=== PATIENT | male | born 1995 | race Caucasian/White ===

== ENCOUNTER 2021-09-25 19:14 | Emergency (ER) | payer OTHER ==
[2021-09-25 20:08] LABS: BASOPHILS # (AUTO) 0.1 10^3/uL (0.0-0.1); BASOPHILS % (AUTO) 0.7 %; EOSINOPHILS # (AUTO) 0.2 10^3/uL (0.0-0.7); EOSINOPHILS % (AUTO) 2.3 %; HCT - HEMATOCRIT 45.3 % (42.0-52.0); HGB - HEMOGLOBIN 15.4 g/dL (14.0-18.0); LYMPHOCYTES # (AUTO) 3.4 10^3/uL (1.5-3.5); LYMPHOCYTES % (AUTO) 35.5 %; MEAN CORPUSCULAR HEMOGLOBIN 27.4 pg (27.0-31.0); MEAN CORPUSCULAR VOLUME 80.5 fL (80.0-94.0); MEAN PLATELET VOLUME 9.3 fL (7.4-11.4); MONOCYTES # (AUTO) 0.7 10^3/uL (0.0-1.0); MONOCYTES % (AUTO) 7.1 %; NEUTROPHILS # (AUTO) 5.1 10^3/uL (1.5-6.6); NEUTROPHILS % (AUTO) 54.1 %; PLT - PLATELET COUNT 268 10^3/uL (130-450); RED BLOOD COUNT 5.63 10^6/uL (4.70-6.10); RED CELL DISTRIBUTION WIDTH 12.9 % (12.0-15.0); WHITE BLOOD COUNT 9.4 x10^3/uL (4.8-10.8)
[2021-09-25 20:14] LABS: ALBUMIN 4.4 g/dL (3.2-5.5); ALBUMIN/GLOBULIN RATIO 1.6 (1.0-2.2); BILIRUBIN,TOTAL 0.6 mg/dL (0.2-1.0); POTASSIUM 4.2 mmol/L (3.5-5.0); TOTAL PROTEIN 7.1 g/dL (6.7-8.2)
[2021-09-25 20:39] LABS: BILIRUBIN,URINE NEGATIVE (NEGATIVE); GLUCOSE, URINE (UA) NEGATIVE (NEGATIVE); KETONES,URINE (UA) NEGATIVE (NEGATIVE); LEUKOCYTE ESTERASE, URINE NEGATIVE (NEGATIVE); NITRITE,URINE NEGATIVE (NEGATIVE); OCCULT BLOOD,URINE NEGATIVE (NEGATIVE); PROTEIN,URINE NEGATIVE (NEGATIVE); UROBILINOGEN,URINE 0.2 (NORMAL) E.U./dL (NORMAL)
[2021-09-25 20:42] LABS: CLARITY,URINE CLEAR (CLEAR)
--- NOTE | 2021-09-25 20:50 | ED Physician Documentation ---
History of Present Illness - Stated complaint Stated Complaint: DIZZINESS - Chief complaint Chief Complaint: Neuro - History obtained from History obtained from: Patient - Additonal information Additional information: 25-year-old gentleman with history of depression and PTSD. He has been on prazosin and Effexor and tapered off over a week finishing up on Saturday, 3 days ago. Subsequent to that he developed orthostasis, feeling lightheaded every time he was standing up or walking. He is minimally symptomatic when supine. There is no associated vertigo. No headache. No trouble breathing. No heart problems. At the time of my evaluation he is already had orthostatic vital signs done which were normal. The taper of the Effexor, he was on 225 mg, went down to 75 mg which he was on for a week and then stopped. Review of Systems Constitutional: denies: Fever, Chills Eyes: reports: Reviewed and negative Ears: reports: Reviewed and negative Nose: reports: Reviewed and negative Throat: reports: Reviewed and negative Cardiac: reports: Reviewed and negative Respiratory: reports: Reviewed and negative PD PAST MEDICAL HISTORY - Past Medical History Past Medical History: Yes Psych: Depression, Anxiety - Past Surgical History Past Surgical History: Yes General: Appendectomy - Present Medications Home Medications: Ambulatory Orders Medication Instructions Recorded Confirmed hydrOXYzine HCL [Hydroxyzine HCl] 10 mg PO DAILY 09/25/21 09/25/21 - Allergies Allergies/Adverse Reactions: Allergies Allergy/AdvReac Type Severity Reaction Status Date / Time No Known Drug Allergies Allergy Verified 09/25/21 19:19 - Social History Does the pt smoke?: No Smoking Status: Never smoker Does the pt drink ETOH?: No Does the pt have substance abuse?: No - Immunizations Immunizations are current?: Yes PD ED PE NORMAL - Vitals Vital signs reviewed: Yes - General General: Alert and oriented X 3, No acute distress - HEENT HEENT: PERRL, EOMI - Neck Neck: Supple, no meningeal sign, No bony TTP - Cardiac Cardiac: RRR, No murmur - Respiratory Respiratory: No respiratory distress, Clear bilaterally - Abdomen Abdomen: Normal bowel sounds, Soft, Non tender - Back Back: No CVA TTP, No spinal TTP - Derm Derm: Normal color, Warm and dry - Extremities Extremities: No edema, No calf tenderness / cord - Neuro Neuro: Alert and oriented X 3, barrel assembler 2-12 intact, No motor deficit, No sensory deficit, Normal speech Eye Opening: Spontaneous Motor: Obeys Commands Verbal: Oriented GCS Score: 15 - Psych Psych: Normal mood, Normal affect Results - Vitals Vitals: Vital Signs - 24 hr 09/25/21 09/25/21 09/25/21 19:19 19:46 20:11 Temperature 36.6 C 36.6 C Heart Rate 88 88 Heart Rate [ 75 Sitting] Heart Rate [ 79 Standing] Heart Rate [ 72 Supine] Respiratory 16 16 Rate Blood Pressure 150/98 H 150/98 H Blood Pressure 134/86 H [Sitting] Blood Pressure 126/65 [Standing] Blood Pressure 126/88 H [Supine] O2 Saturation 98 98 Oxygen O2 Source Room air - EKG (time done) 2000 Rate: Rate (enter#) (80) Rhythm: NSR [place]: Normal Intervals: Normal [place] QRS: Normal Ischemia: Normal ST segments - Labs Labs: Laboratory Tests 09/25/21 09/25/21 09/25/21 19:55 19:55 20:33 WBC 9.4 RBC 5.63 Hgb 15.4 Hct 45.3 MCV 80.5 MCH 27.4 MCHC 34.0 RDW 12.9 Plt Count 268 MPV 9.3 Neut # (Auto) 5.1 Lymph # (Auto) 3.4 [place] # (Auto) 0.7 Eos # (Auto) 0.2 Baso # (Auto) 0.1 Absolute Nucleated RBC 0.00 Nucleated RBC % 0.0 Sodium 141 Potassium 4.2 Chloride 102 Carbon Dioxide 30 Anion Gap 9.0 BUN 10 Creatinine 1.0 Estimated GFR (MDRD) 90 Glucose 102 H Calcium 10.0 Total Bilirubin 0.6 AST 18 ALT 25 Alkaline Phosphatase 61 Total Protein 7.1 Albumin 4.4 Globulin 2.7 Albumin/Globulin Ratio 1.6 Urine Color YELLOW Urine Clarity CLEAR Urine pH 7.0 Ur Specific [place] 1.020 Urine Protein NEGATIVE Urine Glucose (UA) NEGATIVE Urine Ketones NEGATIVE Urine Occult Blood NEGATIVE Urine Nitrite NEGATIVE Urine Bilirubin NEGATIVE Urine Urobilinogen 0.2 (NORMAL) Ur Leukocyte Esterase NEGATIVE Ur Microscopic Review NOT INDICATED Urine Culture Comments NOT INDICATED PD MEDICAL DECISION MAKING - ED course ED course: He presents with orthostasis albeit he does not technically orthostatic but his symptoms are consistent with orthostasis. There is nothing in the history or physical to suggest dehydration. His EKG is unremarkable. The only thing that changed is that just before the symptoms started he was rapidly tapered off of Effexor and prazosin. I suspect the rapid taper off of Effexor is causative and we formulated a plan to address that. Departure - Departure Disposition: 01 Home, Self Care Clinical Impression: Dizziness Condition: Good Record reviewed to determine appropriate education?: Yes Instructions: ED Dizziness UKO Comments: As discussed, I suspect the cause of your orthostasis is likely the rapid taper off of the Effexor. I recommend going back on the Effexor at a dose of 75 mg for about 2 weeks, then 37-1/2 mg for about 2 weeks, then you can stop and I suspect you will have much less symptomatology. Return if worsening. [place]
[2021-09-25 20:56] VITALS: BP 130/81
== END 2021-09-25 20:59 | disposition home or self-care (01) ==
LOC: ED 19:14
DX: R42 Dizziness and giddiness (principal)
CPT/HCPCS: 36415; 80053; 81001; 81003; 85025; 87086; 93005; 99283; 99284

== ENCOUNTER 2021-10-19 09:23 | Outpatient (CLI) | payer OTHER ==
[2021-10-19 10:24] VITALS: BP 122/85
--- NOTE | 2021-10-19 10:24 | SLEEP CARE CONSULTATION ---
Information from patient questionnaire entered by Robert Vickers MA. I have reviewed and concur with the information entered by Robert Vickers MA. This document represents the service I personally performed and the decisions made by me, Radhika Novoa ARNP. History of Present Illness Service Date and Time: 10/19/2021 0923 Reason for Visit: New patient Chief Complaint: reports: Unrefreshed sleep, Snoring, Excessive daytime sleepiness, Observed pauses in breathing, Fatigue, Frequent awakenings at night Date of Onset: 6 years Usual bedtime: 10 PM Time it takes to fall asleep: 1 hour Snores at night: Yes Observed to quit breathing while asleep: Yes Sleeps alone due to snoring: No Number of times waking at night: 3 Reasons for waking at night: reports: Snoring, Gasping for air (according to when sleeping), Other (Unknown reason) Toss, Turn, or Twitch while sleeping: Yes Recalls having dreams: No Usually gets out of bed at: 5:45 AM; weekends 0700 Feels refreshed in the morning: No Morning headache: Yes (7 AM; 50% of days, last about 2 hours) Sleepy or fatigued during the day: Yes Ever fallen asleep while driving: No (some drowsy driving, no accidents) Takes day naps: No Dreams during day naps: No Prior sleep studies: No Additional HPI information: I had the pleasure of seeing DEMETRICE BLOCK today regarding the possibility of him having a sleep disorder. His current complaints are unrefreshed sleep, snoring, observed pauses in breathing, frequent night awakenings, fatigue and excessive daytime sleepiness. He is here because his states he snores loudly and will stop breathing. He does not feel he is rested in the morning. He experiences sleep paralysis about 1 time a month and it will take about 30 minutes to go back to sleep. He has been told that he talks a lot in his sleep. His has told him that he lets the dogs out at night and he does not remember doing this. His has also told him that he gasps in his sleep. He has a history of depression, anxiety and PTSD. 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 Patient is and lives in [place]. Have you smoked in the past 12 months: No Cigarettes per day (20/pack): 20 Years of smokin Quit date: September 2020 Smoking Pack Years: 10.0 Alcohol use: No Caffeine use: Yes Caffeine amount and frequency: 2 cups per day Family History Family history of sleep disordered breathing: No Family Hx Sleep Apnea: Sibling: Snoring Allergies and Home Medications Drug allergies reviewed: Yes (NKDA) Home medication list reviewed: Yes Allergy and home medication list: Effexor XR, weaning off by Saturday Hydroxyzine Review of Systems Weight gain over past 5 years: 25 Cardiovascular: reports: high blood pressure (varies, no medications at this time) Gastrointestinal: denies: heartburn Urinary: reports: other (Takes a while befoer I can urinate) Neurological: reports: headaches Psychiatric: reports: anxiety, depression, mood disorder, other (PTSD) Ear/Nose/Throat: reports: wisdom teeth removed. denies: injury to nose, tonsillectomy Endocrine: denies: thyroid disease Musculoskeletal: reports: neck pain, back pain, other (Tendinitis) Immunologic: denies: allergies to food or environment Physical Exam Vital signs obtained and entered by: Paige VICKERS CMA AARAISSA Blood Pressure: 122/85 (left) Cuff size: wrist Heart Rate: 92 (PT states normal high due to PTSD) O2 Saturation: 97 (with mask) Height: 5 ft 10 in Weight: 195 lb (with uniform and boots) Body Mass Index: 27.9 BMI Classification: Overweight Neck circumference: 16 (inches) Nostrils: patent to airflow Mouth and throat: narrow oropharynx Soft palate: long Hard palate: arched Uvula: normal Uvula visualization: 25% Mallampati Class III Tongue: normal in size Tonsils: small Neck: normal w/o lymphadenopathy or thyromegaly Heart: regular rate and rhythm Lungs: clear bilaterally Impression and Plan 1. Suspected Obstructive Sleep Apnea-Hypopnea Syndrome, as suggested by a history of loud and irregular snoring, observed cessation of breath while asleep, gasping or choking in sleep, morning headache, frequent awakening during the night, unrefreshed sleep, cognitive impairment, and excessive daytime sleepiness. Narrow oropharynx and obesity are common predisposing factors for obstructive sleep apnea-hypopnea syndrome. I recommend proceeding to polysomnography to confirm the diagnosis and to assess severity. If the patient has significant sleep disordered breathing, a manual CPAP titration study will also be performed to find the optimal treatment pressure. I informed the patient of what the sleep studies involve and after some discussion, obtained agreement to proceed. The pathophysiology of obstructive sleep apnea-hypopnea syndrome was discussed with the patient and health risks of cardiovascular and cerebrovascular disease if not treated. AAS brochure for obstructive sleep apnea-hypopnea syndrome given and reviewed. Risks of drowsy driving discussed in detail and patient advised to avoid long distance driving and to ice puller at the first sign of drowsiness. Patient agreed to plan. * Schedule polysomnography +- manual CPAP titration study and return in 1-2 weeks after the study to discuss result and initiate therapy. * Avoid long distance driving or driving when feeling sleepy. * Avoid alcohol, sedative and muscle relaxant around bedtime. * Attempt to lose weight. * Review instructions provided by trained office staff on how to prepare for the sleep study. * Return for follow-up after sleep study completed. Counseling Topics: Weight loss health impact Visit Type: In Office Time Spent with Patient (minutes): 30 Provider Statement: I spent 100% of the Face to Face Visit with the patient with greater than 50% spent counseling the patient and coordination of care.
== END 2021-10-19 09:24 | disposition home or self-care (01) ==
LOC: SC 09:23
PROVIDERS: ATTEND Nurse Practitioner Family
DX: R06.83 Snoring (principal); R51.9 Headache, unspecified; G47.8 Other sleep disorders; G47.10 Hypersomnia, unspecified
CPT/HCPCS: 99203; 99212

== ENCOUNTER 2021-10-20 08:28 | Outpatient (CLI) | payer OTHER | END 2021-10-20 08:29 | disposition home or self-care (01) | LOC: SC 08:28 | PROVIDERS: ATTEND Nurse Practitioner Family | DX: G47.33 Obstructive sleep apnea (adult) (pediatric) (principal); R09.02 Hypoxemia | CPT/HCPCS: 95806 ==

== ENCOUNTER 2021-11-01 13:55 | Outpatient (CLI) | payer OTHER ==
--- NOTE | 2021-11-01 14:09 | SLEEP CARE CONSULTATION ---
Information from patient questionnaire entered by Robert Vickers MA. I have reviewed and concur with the information entered by Robert Vickers MA. This document represents the service I personally performed and the decisions made by , Radhika Novoa ARNP. History of Present Illness Service Date and Time: 11/01/2021 1400 Initial [place] Sleepiness Scale score: 13 (in 2020) Current [place] Sleepiness Scale score: 15 Additional HPI information: DEMETRICE BLOCK returns via video Telehealth visit for follow up and results of the recently performed home sleep study. I explained the pathophysiology behind obstructive sleep apnea. We then spent quite a bit of time discussing different treatment options. For mild obstructive sleep apnea, surgery and oral appliance are alternatives to nasal CPAP therapy but in moderate or severe cases, nasal CPAP is the most effective and reliable treatment. I reviewed the impact of weight changes on sleep apnea and strongly recommended losing weight. After some discussion, the patient opted to go with the nasal CPAP therapy. Nasal autoCPAP set at 5-20 cmH20 will be ordered with rationale explained. A manual titration study will be ordered if unable to find optimal pressure with office adjustments. I explained how CPAP machine works and what to expect when using the machine. Using CPAP every night in order to get used to it was emphasized. Patient advised to put CPAP mask on before getting into bed so as not to fall asleep without CPAP. To assist acclimation to CPAP use, it could also be used for a short time during day while reading or watching TV. The patient was instructed to call the CPAP supplier to discuss any mechanical problem that may occur. If the mask given is uncomfortable or is difficult to keep on through the night even with adjustment, contact the CPAP supplier as many will replace with another mask style if notified before 30 days. If snoring or perceives is not getting enough air or too much air from the machine, notify this office. Patient does not drink alcohol. Patient was cautioned about risks of drowsy driving until sleepiness symptoms resolve. Sleep Study - Results Type of Sleep Study: Home sleep study Prior sleep studies: No Polysomnography/Home Sleep Study results: Physician Impression: The quality of the study is good. The length of the study is not optimal (< 240 minutes). Please also see the tabulated and graphic data. 1. Obstructive Sleep Apnea-Hypopnea (ICD-10 G47.33), severe, with an AHI of 52.8/hr and mary SaO2 of 81%. During the study, the patient had 119 apneas (119 obstructive, 0 central, 0 mixed) and 58 hypopneas. The longest episode lasted 134.0 seconds. The respiratory events occurred independently of sleep stage and body position (supine AHI was 44.4 and non-supine, 52.95). 2. Hypoxemia (ICD-10 R09.02), mild, with the lowest oxygen saturation of 81 % and 42.4 minutes with SaO2 under 90%. Baseline oxygen saturation was normal (Average oxygen saturation was 91%). Allergies and Home Medications Home medication list reviewed: Yes (Paxil started, Effexor stopped) Review of Systems Review of systems same as previous: Yes (no changes) Physical Exam Vital signs obtained and entered by: Telehealth visit to reduce exposure during Covid pandemic Height: 5 ft 10 in Impression and Plan 1. Obstructive Sleep Apnea-Hypopnea Syndrome, severe, with lowest oxygen saturation of 81%. Obviously this is the cause of the patients symptoms of unrefreshed sleep, and excessive daytime sleepiness. Positive pressure therapy could benefit anxiety, depression and PTSD. As mentioned above, the patient will be started on nasal autoCPAP therapy with pressure set at 5-20 cmH2O. A m anual titration study will be completed if unable to find optimal treatment pressure with office adjustments. Compliance guidelines also reviewed. A copy of compliance guidelines will be given for reference at check out. 2. Hypoxemia, mild, with the lowest oxygen saturation of 81 % and 42.4 minutes with SaO2 under 90%. His baseline oxygen saturation was normal with an average oxygen saturation of 91%. * Nasal auto CPAP therapy, pressure at 5-20 cm H2O. * Attempt to lose weight. * Avoid alcohol consumption near bedtime. * Avoid supine sleep until using CPAP. * The patient is again cautioned about driving until sleepiness completely resolves. * Return one month after CPAP obtained. I will assess response to therapy and compliance at that time. Counseling Topics: Weight loss health impact Visit Type: Telehealth Video Video Type: VSee Patient Location: Home Location of Provider: Office Patient agrees and consents to this telehealth visit type: Yes Patient agrees to have their insurance billed: Yes Time Spent with Patient (minutes): 20 Provider Statement: I spent 100% of the Telehealth Video Call with the patient with greater than 50% spent counseling the patient and coordination of care.
== END 2021-11-01 13:56 | disposition home or self-care (01) ==
LOC: SC 13:55
PROVIDERS: ATTEND Nurse Practitioner Family
DX: G47.33 Obstructive sleep apnea (adult) (pediatric) (principal); R09.02 Hypoxemia

== ENCOUNTER 2021-11-20 13:42 | Outpatient (CLI) | payer OTHER ==
--- NOTE | 2021-11-20 15:16 | MRI Report ---
PROCEDURE: Cervical Spine W/O INDICATIONS: CERVICALGIA TECHNIQUE: Noncontrast sagittal T1 spin echo and T2 fast spin echo, sagittal STIR, foraminal oblique sagittal T2 fast spin echo, and axial gradient echo or T2 fast spin echo through the cervical spine. COMPARISON: None. FINDINGS: Image quality: Excellent. Alignment and Curvature: There is normal bony alignment. Bone Marrow: Marrow demonstrates normal overall signal. Spinal Cord: Visualized spinal cord has normal size and signal. No cerebellar tonsillar herniation. Paraspinous Soft Tissues: No paravertebral masses. Prevertebral soft tissues are normal in thicknes s. C2-C3: Normal in appearance. C3-C4: Normal in appearance. C4-C5: Normal in appearance. C5-C6: Normal in appearance. C6-C7: Normal in appearance. C7-T1: Normal in appearance. IMPRESSION: Unremarkable MRI of the cervical spine. No cervical cord signal abnormality, spinal canal stenosis, n eural foraminal narrowing, or other abnormality to explain neck pain. Reviewed by: Marcus Hernandez MD on 11/20/2021 2:14 PM [facility] Approved by: Marcus Hernandez MD on 11/20/2021 2:14 PM [facility] Station ID: [id number]
== END 2021-11-20 13:43 | disposition home or self-care (01) ==
LOC: DI 13:42
PROVIDERS: ATTEND Family Medicine
DX: M54.2 Cervicalgia (principal)

== ENCOUNTER 2022-01-22 11:45 | Emergency (ER) | payer OTHER ==
[2022-01-22 12:01] VITALS: BP 128/83
--- NOTE | 2022-01-22 14:07 | ED Physician Documentation ---
History of Present Illness - Stated complaint Stated Complaint: MALE - Chief complaint Chief Complaint: Abd Pain - History obtained from History obtained from: Patient - History of Present Illness Timing: How many days ago (3) Pain level max: 5 Pain level now: 5 - Additonal information Additional information: Patient is a 26-year-old male, active duty [employer] who complains of urinary retention for the past 2 to 3 days. He started on propanolol 20 mg daily about 5 days ago. He is also on cyclobenzaprine, loperamide, amitriptyline, diazepam, hydroxyzine, fluoxetine at home. Patient also complains of low back pain. No numbness or tingling. No loss of bowel or bladder control. No perineal anesthesia. Worse with movement, better with rest. Review of Systems Constitutional: denies: Fever, Chills Cardiac: denies: Chest pain / pressure, Palpitations Respiratory: denies: Cough GI: denies: Abdominal Pain, Vomiting, Diarrhea Skin: denies: Rash PD PAST MEDICAL HISTORY - Past Medical History Past Medical History: Yes Psych: Depression, Anxiety - Past Surgical History Past Surgical History: Yes General: Appendectomy - Present Medications Home Medications: Ambulatory Orders Medication Instructions Recorded Confirmed hydrOXYzine HCL [Hydroxyzine HCl] 10 mg PO DAILY 09/25/21 09/25/21 Meloxicam [Mobic] 7.5 mg PO BID PRN #20 tablet 01/22/22 - Allergies Allergies/Adverse Reactions: Allergies Allergy/AdvReac Type Severity Reaction Status Date / Time No Known Drug Allergies Allergy Verified 01/22/22 12:01 - Social History Does the pt smoke?: No Smoking Status: Never smoker Does the pt drink ETOH?: No Does the pt have substance abuse?: No - Immunizations Immunizations are current?: Yes PD ED PE NORMAL - Vitals Vital signs reviewed: Yes - General General: Alert and oriented X 3, No acute distress, Well developed/nourished - HEENT HEENT: Moist mucous membranes - Neck Neck: Supple, no meningeal sign - Cardiac Cardiac: RRR, Strong equal pulses - Respiratory Respiratory: No respiratory distress, Clear bilaterally - Abdomen Abdomen: Soft, Non tender, Non distended - Back Back: No spinal TTP (No midline tenderness palpation or percussion. No step-off or deformity) - Derm Derm: Warm and dry - Extremities Extremities: No edema - Neuro Neuro: Alert and oriented X 3, facilities technician 2-12 intact, No motor deficit, No sensory deficit, Other (Normal bilateral lower extremity patellar and ankle jerk reflexes. Normal great toe extension bilaterally. no saddle anesthesia) - Psych Psych: Normal mood, Normal affect Results - Vitals Vitals: Vital Signs - 24 hr 01/22/22 11:58 Temperature 36.0 C L Heart Rate 85 Respiratory 16 Rate Blood Pressure 128/83 H O2 Saturation 97 Oxygen O2 Source Room air - Labs Labs: Laboratory Tests 01/22/22 01/22/22 01/22/22 14:10 14:17 14:17 WBC 8.3 RBC 5.32 Hgb 14.6 Hct 43.6 MCV 82.0 MCH 27.4 MCHC 33.5 RDW 13.3 Plt Count 311 MPV 9.5 Neut # (Auto) 4.1 Lymph # (Auto) 3.2 [place] # (Auto) 0.7 Eos # (Auto) 0.2 Baso # (Auto) 0.1 Absolute Nucleated RBC 0.00 Nucleated RBC % 0.0 Sodium 139 Potassium 4.1 Chloride 101 Carbon Dioxide 28 Anion Gap 10.0 BUN 9 Creatinine 1.2 Estimated GFR (MDRD) 72 L Glucose 106 H Calcium 9.5 Total Bilirubin 0.3 AST 27 ALT 48 Alkaline Phosphatase 47 Total Protein 6.9 Albumin 4.1 Globulin 2.8 Albumin/Globulin Ratio 1.5 Lipase 29 Urine Color YELLOW Urine Clarity CLEAR Urine pH 7.5 Ur Specific [place] 1.020 Urine Protein NEGATIVE Urine Glucose (UA) NEGATIVE Urine Ketones NEGATIVE Urine Occult Blood NEGATIVE Urine Nitrite NEGATIVE Urine Bilirubin NEGATIVE Urine Urobilinogen 0.2 (NORMAL) Ur Leukocyte Esterase NEGATIVE Ur Microscopic Review NOT INDICATED Urine Culture Comments NOT INDICATED - Rads (name of study) Lumbar spine MRI Radiology: Final report received, EMP read contemporaneously, See rad report (Normal L-spine MRI) PD MEDICAL DECISION MAKING - ED course Complexity details: reviewed results, re-evaluated patient, considered differential (No cauda equina, no spinal epidural abscess, no fracture, no aortic dissection or evidence of aneursym rupture), d/w patient ED course: Bedside ultrasound reveals a bladder with approximately 3-400 mL. He was only able to urinate approximately 20 mL. Concern for acute urinary retention with back pain could be epidural abscess or cauda equina. Lumbar spine MRI was performed and is normal. In addition to recently starting the propanolol he also recently started amitriptyline which can cause urinary retention, will have him stop the amitriptyline and see if this resolves his symptoms. We will place him on anti-inflammatories for his back pain. Patient is ambulating without any difficulty. No evidence of abscess. Does not use IV drugs. No fevers. No trauma. Patient counseled regarding signs and symptoms for which I believe and urgent re-evaluation would be necessary. Patient with good underst anding of and agreement to plan and is comfortable going home at this time This document was made in part using voice recognition software. While efforts are made to proofread this document, sound alike and grammatical errors may occur. Departure - Departure Disposition: 01 Home, Self Care Clinical Impression: Urinary retention Condition: Good Instructions: ED Retention Urinary Male Follow-Up: VIVIENNE VAZQUEZ MD [Primary Care Provider] - Within 3 Days Prescriptions: Meloxicam [Mobic] 7.5 mg PO BID PRN #20 tablet PRN Reason: Pain Comments: The cause of your urinary retention is unclear. Your laboratory testing, urinalysis and lumbar spine MRI did not show any acute abnormalities. This may be due to the amitriptyline. Please stop this medication. Please follow-up with your doctor for further care. We will send meloxicam for your back pain to [facility] pharmacy in [place]. Please return if you worsen. Discharge Date/Time: 01/22/22 16:42
[2022-01-22 14:27] LABS: BASOPHILS # (AUTO) 0.1 10^3/uL (0.0-0.1); BASOPHILS % (AUTO) 0.7 %; EOSINOPHILS # (AUTO) 0.2 10^3/uL (0.0-0.7); EOSINOPHILS % (AUTO) 2.7 %; HCT - HEMATOCRIT 43.6 % (42.0-52.0); HGB - HEMOGLOBIN 14.6 g/dL (14.0-18.0); LYMPHOCYTES # (AUTO) 3.2 10^3/uL (1.5-3.5); LYMPHOCYTES % (AUTO) 38.3 %; MEAN CORPUSCULAR HEMOGLOBIN 27.4 pg (27.0-31.0); MEAN CORPUSCULAR HGB CONC 33.5 g/dL (32.0-36.0); MEAN PLATELET VOLUME 9.5 fL (7.4-11.4); MONOCYTES # (AUTO) 0.7 10^3/uL (0.0-1.0); MONOCYTES % (AUTO) 7.9 %; NEUTROPHILS # (AUTO) 4.1 10^3/uL (1.5-6.6); NEUTROPHILS % (AUTO) 49.4 %; PLT - PLATELET COUNT 311 10^3/uL (130-450); RED BLOOD COUNT 5.32 10^6/uL (4.70-6.10); RED CELL DISTRIBUTION WIDTH 13.3 % (12.0-15.0); WHITE BLOOD COUNT 8.3 x10^3/uL (4.8-10.8)
[2022-01-22 14:34] LABS: BILIRUBIN,URINE NEGATIVE (NEGATIVE); GLUCOSE, URINE (UA) NEGATIVE (NEGATIVE); KETONES,URINE (UA) NEGATIVE (NEGATIVE); LEUKOCYTE ESTERASE, URINE NEGATIVE (NEGATIVE); NITRITE,URINE NEGATIVE (NEGATIVE); OCCULT BLOOD,URINE NEGATIVE (NEGATIVE); PH,URINE 7.5 PH (5.0-7.5); PROTEIN,URINE NEGATIVE (NEGATIVE); UROBILINOGEN,URINE 0.2 (NORMAL) E.U./dL (NORMAL)
[2022-01-22 14:35] LABS: CLARITY,URINE CLEAR (CLEAR)
[2022-01-22 14:43] LABS: ALBUMIN 4.1 g/dL (3.2-5.5); ALBUMIN/GLOBULIN RATIO 1.5 (1.0-2.2); BILIRUBIN,TOTAL 0.3 mg/dL (0.2-1.0); CALCIUM 9.5 mg/dL (8.5-10.3); CREATININE 1.2 mg/dL (0.6-1.2); POTASSIUM 4.1 mmol/L (3.5-5.0); TOTAL PROTEIN 6.9 g/dL (6.7-8.2)
[2022-01-22] MEDS ORDERED: KETOROLAC 60 MG/2 ML VIAL IM STA (16:05)
--- NOTE | 2022-01-22 16:16 | MRI Report ---
PROCEDURE: Lumbar Spine W/O INDICATIONS: urinary retention TECHNIQUE: Noncontrast sagittal T1 spin echo and T2 fast echo, sagittal STIR, axial T1 and T2 fast spin echo thr ough the lumbar spine. In cases with scoliosis, additional coronal T2 fast spin echo may be performe d. COMPARISON: None. FINDINGS: Normal lumbar vertebral body height, alignment, and signal intensity. There is no suspicious focal ma rrow signal abnormality or bone marrow edema. Normal position and appearance of the conus. Normal hei ght and hydration of the intervertebral disks with no disc herniation, spinal canal stenosis, or neur al foraminal stenosis at any level. No evidence of focal nerve root impingement. Prevertebral and par aspinous soft tissues are within normal limits. IMPRESSION: Normal MRI of the lumbar spine. No spinal canal stenosis, neural foraminal stenosis, or f indings of focal nerve root impingement. Reviewed by: Marcus Hernandez MD on 01/22/2022 4:14 PM PDT Approved by: Marcus Hernandez MD on 01/22/2022 4:14 PM PDT Station ID: [id number]
[2022-01-22] MEDS ORDERED: ACETAMINOPHEN 325 MG TABLET PO STA (16:34)
== END 2022-01-22 16:42 | disposition home or self-care (01) ==
LOC: ED 11:45
DX: R33.9 Retention of urine, unspecified (principal)
CPT/HCPCS: 36415; 72148; 80053; 81003; 83690; 85025; 96372; 99284; A9270; 81001; 87086

== ENCOUNTER 2022-02-21 13:05 | Outpatient (CLI) | payer OTHER ==
[2022-02-21 13:41] VITALS: BP 128/73
--- NOTE | 2022-02-21 13:41 | SLEEP CARE CONSULTATION ---
Information from patient questionnaire entered by Robert Vickers MA. I have reviewed and concur with the information entered by Robert Vickers MA. This document represents the service I personally performed and the decisions made by , Radhika Novoa ARNP. History of Present Illness Service Date and Time: 02/21/2022 1305 Previous diagnosis: Severe, Obstructive Sleep Apnea-Hypopnea Syndrome AHI: 52.8 (in 2020) Reason for follow up: first compliance (SET UP DATE 01/16/22, ) Equipment type: CPAP Equipment obtained from: Other ([employer]; got initial supplies) Mask style: Full face Backup mask available: No (will keep old mask when replaced) Last cushion change: 1 month Prior sleep studies: No Type of Sleep Study: Home sleep study HPI additional information: DEMETRICE BLOCK was diagnosed to have severe, AHI 52.8, obstructive sleep apnea- hypopnea syndrome and returned today for CPAP therapy first compliance follow- up. Sleep Study - Results Type of Sleep Study: Home sleep study Prior sleep studies: No CPAP Compliance Data - Data Reviewed with Patient Average duration of nightly device use: 6.2 hours Compliance rate %: 96 (29/30 days with 4 hours or more) Current pressure setting (cmH2O): 5-20 (P95 12.7 cmH2O) Average residual AHI: 3.9 Central apnea: 2.4 Obstructive apnea: 2.4 Average large leak: 20.8 L/min Subjective Patient concerns: reports: air blowing in eyes (occasionally, little bit), dry mouth, nose, throat (dry mouth every morning), other (? mask too small). denies: aerophagia, mask discomfort, mask leak noise, condensation in mask/hose, nasal congestion, epistaxis Observed to snore while using device: Yes (not as bad) Current pressure setting perceived as: comfortable On therapy, patient: reports: sleeping better, more rested overall, drowsiness while driving. denies: being more awake and alert during the day Initial [place] Sleepiness Scale score: 13 (in 2020) Current [place] Sleepiness Scale score: 22 Allergies and Home Medications Known drug allergies: Yes Drug allergies reviewed: Yes Home medication list reviewed: Yes (Prozac and xanax) Allergy and home medication list: Allergies No Known Drug Allergies Allergy (Verified 01/22/22 12:01) Review of Systems Review of systems same as previous: No (PT for back and knee) Physical Exam Vital signs obtained and entered by: HARIS DILLARD Blood Pressure: 128/73 (LEFT, 88 PULSE, RESP 18,) Cuff size: wrist Heart Rate: 84 O2 Saturation: 98 (PAPER) Height: 5 ft 10 in Weight: 205 lb (WITH UNIFORM, BOOTS) Body Mass Index: 29.4 BMI Classification: Overweight Impression and Plan 1. Obstructive Sleep Apnea-Hypopnea Syndrome, severe, with good treatment compliance and good apnea control. Patient has a new Linette CPAP machine. We were able to get some compliance information off the machine but not the full report. On CPAP therapy, the patient has better sleep quality and is more rested overall. The patients pressure will be changed to AutoCPAP 12-16 cmH20 to reflect the pressure being used. Patient advised to contact me if pressure change is uncomfortable so that it can be adjusted. Goals for apnea control discussed. Patient's apnea severity and rationale for treatment to reduce apnea, improve sleep quality and reduce cardiovascular and cerebrovascular events was reviewed. I also reviewed the benefit of consistent device use of CPAP for depression, anxiety and PTSD. * Change auto CPAP pressure to 12-16 cmH2O * Notify me if snoring with mask or feeling that the pressure is too much or too little * Attempt to lose weight * Call this office if any problems using CPAP * Return for follow up in 1-2 months, or sooner if concerns arise Counseling Topics: Spare mask, Weight control Visit Type: In Office Time Spent with Patient (minutes): 28 Provider Statement: I spent 100% of the Face to Face Visit with the patient with greater than 50% spent counseling the patient and coordination of care.
== END 2022-02-21 13:06 | disposition home or self-care (01) ==
LOC: SC 13:05
PROVIDERS: ATTEND Nurse Practitioner Family
DX: G47.33 Obstructive sleep apnea (adult) (pediatric) (principal)
CPT/HCPCS: 99212; 99213

== ENCOUNTER 2022-03-02 10:12 | Emergency (ER) | payer OTHER ==
[2022-03-02 10:56] LABS: BASOPHILS % (AUTO) 0.4 %; EOSINOPHILS % (AUTO) 0.1 %; HCT - HEMATOCRIT 45.9 % (42.0-52.0); HGB - HEMOGLOBIN 15.8 g/dL (14.0-18.0); LYMPHOCYTES # (AUTO) 1.3 10^3/uL (1.5-3.5); LYMPHOCYTES % (AUTO) 18.7 %; MEAN CORPUSCULAR HEMOGLOBIN 27.8 pg (27.0-31.0); MEAN CORPUSCULAR HGB CONC 34.4 g/dL (32.0-36.0); MEAN CORPUSCULAR VOLUME 80.7 fL (80.0-94.0); MONOCYTES # (AUTO) 0.2 10^3/uL (0.0-1.0); MONOCYTES % (AUTO) 3.2 %; NEUTROPHILS # (AUTO) 5.3 10^3/uL (1.5-6.6); NEUTROPHILS % (AUTO) 77.5 %; PLT - PLATELET COUNT 296 10^3/uL (130-450); RED BLOOD COUNT 5.69 10^6/uL (4.70-6.10); RED CELL DISTRIBUTION WIDTH 13.3 % (12.0-15.0); WHITE BLOOD COUNT 6.8 x10^3/uL (4.8-10.8)
--- NOTE | 2022-03-02 11:08 | XRAY Report ---
PROCEDURE: Chest 1 View X-Ray INDICATIONS: Chest pain TECHNIQUE: One view of the chest was acquired. COMPARISON: None. FINDINGS: Surgical changes and devices: None. Lungs and pleura: No pleural effusions or pneumothorax. Lungs are clear. Mediastinum: Mediastinal contours appear normal. Heart size is normal. Bones and chest wall: No suspicious bony lesions. Overlying soft tissues appear unremarkable. IMPRESSION: No acute cardiopulmonary abnormality. Reviewed by: Rohan Penaloza MD on 03/02/2022 11:07 AM PDT Approved by: Rohan Penaloza MD on 03/02/2022 11:07 AM PDT Station ID: [id number]
[2022-03-02 11:13] LABS: ALBUMIN 4.9 g/dL (3.2-5.5); ALBUMIN/GLOBULIN RATIO 1.4 (1.0-2.2); BILIRUBIN,TOTAL 0.8 mg/dL (0.2-1.0); POTASSIUM 3.8 mmol/L (3.5-5.0); TOTAL PROTEIN 8.3 g/dL (6.7-8.2)
--- NOTE | 2022-03-02 11:44 | ED Physician Documentation ---
History of Present Illness - Stated complaint Stated Complaint: SOA/NAUSEA/SWEATING - Chief complaint Chief Complaint: Cardiac - Additonal information Additional information: 26-year-old male presents emergency department for evaluation of sudden onset substernal chest pain and pressure that he noticed when he woke up this morning. He endorsed some nausea as well as diaphoresis. Chest pain did not radiate. No history of similar in the past. He does not have a history of hypertension, diabetes or previously known heart disease. He is a non-smoker. No family history of sudden early coronary artery disease/. Patient is not on any hormones. No recent travel. No unilateral leg swelling or calf pain. No recent surgeries. He is trying to get out of the . 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 Currently on duloxetine. Missed his dose yesterday. He does follow-up with [facility] psychology/mental health. Patient states that his anxiety PTSD has never manifested in this manner Review of Systems Constitutional: reports: Reviewed and negative Nose: reports: Reviewed and negative Throat: reports: Reviewed and negative Cardiac: reports: Chest pain / pressure. denies: Palpitations, Pedal edema Respiratory: reports: Dyspnea. denies: Cough, Hemoptysis, Wheezing GI: reports: Nausea : reports: Reviewed and negative Skin: reports: Reviewed and negative Musculoskeletal: reports: Reviewed and negative Neurologic: reports: Reviewed and negative PD PAST MEDICAL HISTORY - Past Medical History Psych: Depression, Anxiety, Post traumatic stress disorder - Past Surgical History Past Surgical History: Yes General: Appendectomy - Present Medications Home Medications: Ambulatory Orders Medication Instructions Recorded Confirmed hydrOXYzine HCL [Hydroxyzine HCl] 10 mg PO DAILY 09/25/21 09/25/21 Meloxicam [Mobic] 7.5 mg PO BID PRN #20 tablet 01/22/22 - Allergies Allergies/Adverse Reactions: Allergies Allergy/AdvReac Type Severity Reaction Status Date / Time No Known Drug Allergies Allergy Verified 03/02/22 10:29 - Social History Does the pt smoke?: No Smoking Status: Never smoker Does the pt drink ETOH?: No Does the pt have substance abuse?: No - Immunizations Immunizations are current?: Yes PD ED PE NORMAL - General General: Alert and oriented X 3, No acute distress, Well developed/nourished - HEENT HEENT: Atraumatic, Moist mucous membranes, Pharynx benign - Neck Neck: Supple, no meningeal sign, No adenopathy - Cardiac Cardiac: RRR, No murmur, No gallop - Respiratory Respiratory: No respiratory distress, Clear bilaterally - Abdomen Abdomen: Normal bowel sounds, Soft - Back Back: No spinal TTP - Derm Derm: Normal color, Warm and dry, No rash - Extremities Extremities: No deformity - Neuro Neuro: Alert and oriented X 3 Eye Opening: Spontaneous Motor: Obeys Commands Verbal: Oriented GCS Score: 15 - Psych Psych: Normal mood, Normal affect Results - Vitals Vitals: Vital Signs - 24 hr 03/02/22 03/02/22 03/02/22 10:26 10:43 11:00 Temperature 36.0 C L Heart Rate 92 106 H 84 Respiratory 22 18 18 Rate Blood Pressure 142/87 H 146/90 H 153/103 H O2 Saturation 100 96 100 03/02/22 11:30 Temperature Heart Rate 99 Respiratory 16 Rate Blood Pressure 143/73 H O2 Saturation 100 Oxygen O2 Source Room air - EKG (time done) 1035 Rate: Rate (enter#) (95) Rhythm: NSR [place]: Normal Intervals: Normal VA QRS: Normal Ischemia: Non specific changes Compare to prior EKG: Old EKG unavailable Computer interpretation: Agree with computer - Labs Labs: Laboratory Tests 03/02/22 03/02/22 03/02/22 10:40 10:40 10:40 WBC 6.8 RBC 5.69 Hgb 15.8 Hct 45.9 MCV 80.7 MCH 27.8 MCHC 34.4 RDW 13.3 Plt Count 296 MPV 10.0 Neut # (Auto) 5.3 Lymph # (Auto) 1.3 L [place] # (Auto) 0.2 Eos # (Auto) 0.0 Baso # (Auto) 0.0 Absolute Nucleated RBC 0.00 Nucleated RBC % 0.0 Sodium 140 Potassium 3.8 Chloride 104 Carbon Dioxide 23 Anion Gap 13.0 BUN 15 Creatinine 1.0 Estimated GFR (MDRD) 89 Glucose 113 H Calcium 10.0 Total Bilirubin 0.8 AST 23 ALT 26 Alkaline Phosphatase 55 Troponin I High Sens 4.8 Total Protein 8.3 H Albumin 4.9 Globulin 3.4 Albumin/Globulin Ratio 1.4 Lipase 35 - Rads (name of study) cxr Radiology: Final report received (No acute cardiopulmonary abnormality) PD MEDICAL DECISION MAKING - ED course Complexity details: reviewed results, re-evaluated patient, considered differential ED course: 26-year-old male presents emergency department for evaluation of sudden onset substernal chest pain and pressure that he noticed when he woke up this a.m. He did present to the ER diaphoretic and anxious appearing. However after waiting for an hour in the emergency department he seemed to calm and feel better without any treatment. Screening labs biochemical markers EKG and chest x-ray are essentially unremarkable. Patient is PERC negative. Doubt PE. Unremarkable cardiopulmonary auscultation without hypoxia. I discussed with the patient that I feel ACS and PE were extremely unlikely. Given his anxiety and concerns with hazing in the [place] I suspect that this is most likely a panic attack in a different manifestation than usual. Patient is given a dose of Ativan here in the emergency department and would like to be discharged home. He will continue to follow-up closely with [facility] medical. Departure - Departure Disposition: 01 Home, Self Care Clinical Impression: Pressure in chest Condition: Stable Record reviewed to determine appropriate education?: Yes Comments: Kennedy osman are seen today in the emergency department for the development of sudden onset substernal chest pain and chest pressure this morning when he woke up. You are also sweating on arrival to the emergency department. Your vital signs here have been essentially normal though your blood pressure is just slightly elevated. Your screening EKG, chest x-ray, labs and biochemical markers for your heart are all normal. As we discussed at the bedside it is very very unlikely that this is related to heart disease, heart attack, stroke or blood clots in your chest. I do suspect that this is a different manifestation of your anxiety or PTSD. You are given a dose of Ativan here in the emergency department. I recommend that you continue your duloxetine. Continue to follow-up with your primary care provider. If similar episodes do occur again I recommend that you do try and sit in a cool quiet room practice slow deep breathing. Often simple meditation can help break the cycle of anxiety. If you ever feel unsafe, cannot breathe, have sudden severe chest pain, or any fainting episodes then please return to the emergency department
[2022-03-02] MEDS: LORazepam 1 MG TABLET PO STA (11:46)
[2022-03-02 12:03] VITALS: BP 146/90
--- NOTE | 2022-03-03 16:07 | ED Physician Documentation ---
ED Addendum - Addendum Addendum: 03/03/22 16:07 Per RN patient called in asking for prescription for nausea. I sent a prescription for Zofran 4 mg tablets every 6 hours as needed nausea to [facility] in [place] per his request.
== END 2022-03-02 12:10 | disposition home or self-care (01) ==
LOC: ED 10:12
DX: R07.89 Other chest pain (principal); F43.10 Post-traumatic stress disorder, unspecified
CPT/HCPCS: 36415; 71045; 80053; 83690; 84484; 85025; 93005; 99282; 99284; J8499

== ENCOUNTER 2022-03-22 12:41 | Outpatient (CLI) | payer OTHER ==
[2022-03-22 13:29] VITALS: BP 142/98
--- NOTE | 2022-03-22 13:29 | SLEEP CARE CONSULTATION ---
Information from patient questionnaire entered by Robert Vickers MA. I have reviewed and concur with the information entered by Robert Vickers MA. This document represents the service I personally performed and the decisions made by , Radhika Novoa ARNP. History of Present Illness Service Date and Time: 03/22/2022 1241 Previous diagnosis: Severe, Obstructive Sleep Apnea-Hypopnea Syndrome AHI: 52.8 (in 2020) Reason for follow up: one month (1 MONTH F/U, PRESSURE CHANGE, NEED MACHINE - RUTH,) Equipment type: CPAP Equipment obtained from: Other ([employer]; getting supplies) Mask style: Full face (AirFit F20) Backup mask available: Yes (other mask) Prior sleep studies: No Type of Sleep Study: Home sleep study HPI additional information: DEMETRICE BLOCK was diagnosed to have severe, AHI 52.8, obstructive sleep apnea- hypopnea syndrome and returned today for CPAP therapy one month with pressure change follow-up. Sleep Study - Results Type of Sleep Study: Home sleep study Prior sleep studies: No CPAP Compliance Data - Data Reviewed with Patient Average duration of nightly device use: 6.3 hours Compliance rate %: 83 (30 days; 25/30 > 4 hours) Current pressure setting (cmH2O): 12-16 Average residual AHI: 3.2 Average large leak: 2.5 LPM Subjective Missed days of use due to: reports: illness (poss withdrawl from med being weaned off) Patient concerns: denies: aerophagia, mask discomfort, air blowing in eyes, mask leak noise, condensation in mask/hose, nasal congestion, dry mouth, nose, throat, epistaxis, other Observed to snore while using device: No Current pressure setting perceived as: comfortable On therapy, patient: reports: sleeping better, awakening more refreshed, being more awake and alert during the day, more rested overall, drowsiness while driving (on trips to work and back; sometimes to grocery store) Initial [place] Sleepiness Scale score: 13 (in 2020) Current [place] Sleepiness Scale score: 22 Allergies and Home Medications Home medication list reviewed: Yes (no changes) Allergy and home medication list: Allergies No Known Drug Allergies Allergy (Verified 03/02/22 10:29) Review of Systems Review of systems same as previous: Yes (no changes) Physical Exam Vital signs obtained and entered by: HARIS DILLARD Blood Pressure: 142/98 Cuff size: wrist Heart Rate: 93 O2 Saturation: 96 Height: 5 ft 10 in Weight: 215 lb Weight change since last visit: 10 lb gain Body Mass Index: 30.8 BMI Classification: Obese Impression and Plan 1. Obstructive Sleep Apnea-Hypopnea Syndrome, severe, with good treatment compliance and good apnea control. On CPAP therapy, the patient has better sleep quality and is more rested overall. He is still having an elevated [place] of 22/24. He recently was going through a medication change, tapering off some medication but they had to reinstate it because of the side effects. This could be affecting his daytime fatigue since it was for pain and anxiety. He was advised to take precautions about driving when tired. He voiced understanding. Patient has a Ruth CPAP. We were able to obtain last 30 day compliance. Patient denies having any issues with the CPAP. He is trying out a larger size cushion full face mask because he felt the other was too small. He is going to try an AirFit F20 full face mask to see how it does. He was instructed to let us know of any concerns. He denied any oral dryness, nasal congestion, epistaxis, skin irritation/rash or aerophagia. Patient's apnea severity and rationale for treatment to reduce apnea, improve sleep quality and reduce cardiovascular and cerebrovascular events was reviewed. I also reviewed the benefit of consistent device use of CPAP for depression, anxiety and mood disorder (PTSD). * Continue auto CPAP pressure at 12-16 cmH2O * Notify me if snoring with mask or feeling that the pressure is too much or too little * Attempt to lose weight * Call this office if any problems using CPAP * Return for follow up in 3 months, or sooner if concerns arise Counseling Topics: Spare mask, Weight loss health impact Visit Type: In Office Time Spent with Patient (minutes): 21 Provider Statement: I spent 100% of the Face to Face Visit with the patient with greater than 50% spent counseling the patient and coordination of care.
== END 2022-03-22 12:42 | disposition home or self-care (01) ==
LOC: SC 12:41
PROVIDERS: ATTEND Nurse Practitioner Family
DX: G47.33 Obstructive sleep apnea (adult) (pediatric) (principal); E66.9 Obesity, unspecified; Z68.30 Body mass index [BMI] 30.0-30.9, adult
CPT/HCPCS: 99212; 99213

== ENCOUNTER 2022-06-06 13:42 | Outpatient (CLI) | payer OTHER ==
--- NOTE | 2022-06-06 16:58 | MRI Report ---
PROCEDURE: Knee LT W/O INDICATIONS: BILATERAL KNEE PAIN TECHNIQUE: Noncontrast sagittal PD fast spin echo and T2 fast spin echo with fat saturation, sagittal 3-D gradie nt sequence with fat saturation; coronal T1 spin echo and PD fast spin echo with fat saturation, and axial PD fast spin echo with fat saturation through the knee. COMPARISON: None. FINDINGS: Image quality: Degraded by motion artifact. Menisci: The medial and lateral menisci demonstrate normal morphology and internal signal. The meni scal root ligaments appear intact. Cruciate ligaments: The anterior and posterior cruciate ligaments appear intact. Medial structures: The medial collateral ligament appears intact. Visualized portions of the pes an serinus tendons appear normal. No abnormal bursal fluid. Lateral structures: The lateral collateral ligament, long and short heads of the biceps femoris tend on appear intact. The popliteus tendon appears normal. Iliotibial band appears normal. Anterior structures: The quadriceps and patellar tendons appear intact. Patellar alignment is bill l. No femoral trochlear dysplasia or ventral trochlear prominence. No edema in the infrapatellar fa t pad. Bones and cartilage: No bone marrow contusions or fractures. The cartilage of the medial and latera l femorotibial compartments, as well as the patellofemoral compartment, appears normal in thickness. Joint space: There is physiologic knee joint fluid. Trace Pal's cyst. Normal appearing synovial p licae are incidentally noted. IMPRESSION: 1. No internal derangement. 2. Trace Pal's cyst. Reviewed by: Alexys Farias MD on 06/06/2022 4:57 PM PDT Approved by: Alexys Farias MD on 06/06/2022 4:57 PM PDT Station ID: [id number]
--- NOTE | 2022-06-07 11:14 | MRI Report ---
PROCEDURE: Knee RT W/O INDICATIONS: BILATERAL KNEE PAIN TECHNIQUE: Noncontrast sagittal PD fast spin echo and T2 fast spin echo with fat saturation, sagittal 3-D gradie nt sequence with fat saturation; coronal T1 spin echo and PD fast spin echo with fat saturation, and axial PD fast spin echo with fat saturation through the knee. COMPARISON: None. FINDINGS: Image quality: Excellent. Menisci: The medial and lateral menisci demonstrate normal morphology and internal signal. The meni scal root ligaments appear intact. Cruciate ligaments: The anterior and posterior cruciate ligaments appear intact. Medial structures: The medial collateral ligament appears intact. The semimembranosus tendon insert ions and meniscocapsular junction appear intact. Visualized portions of the pes anserinus tendons ap pear normal. No abnormal bursal fluid. Lateral structures: The lateral collateral ligament, long and short heads of the biceps femoris tend on appear intact. The popliteus tendon appears normal. Iliotibial band appears normal. Anterior structures: The quadriceps and patellar tendons appear intact. Mild quadriceps tendinitis with tendon thickening and increased signal. Patellar alignment is normal. No femoral trochlear dysp lasia or ventral trochlear prominence. No edema in the infrapatellar fat pad. Bones and cartilage: There is mild spurring of the lateral femoral condyle. No bone marrow contusion s or fractures. 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 Joint space: There is small knee joint effusion. There is a small Pal's cyst. Normal appearing sy novial plicae are incidentally noted. IMPRESSION: 1. 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 2. Mild quadriceps tendinitis. 3. Small knee joint effusion. 4. A small Pal's cyst.. Reviewed by: Alexus Burgess MD on 06/07/2022 11:13 AM PDT Approved by: Alexus Burgess MD on 06/07/2022 11:13 AM PDT Station ID: [id number]
== END 2022-06-06 13:43 | disposition home or self-care (01) ==
LOC: DI 13:42
PROVIDERS: ATTEND Family Medicine
DX: M11.261 Other chondrocalcinosis, right knee (principal); M71.21 Synovial cyst of popliteal space [Baker], right knee; M71.22 Synovial cyst of popliteal space [Baker], left knee; M25.461 Effusion, right knee; M76.891 Other specified enthesopathies of right lower limb, excluding foot